=== PATIENT | male | born 1980 | race Caucasian/White ===

== ENCOUNTER 2016-12-12 16:07 | Emergency (ER) | payer OTHER ==
[2016-12-12] MEDS ORDERED: MOTRIN PO ONE (20:59)
[2016-12-12] MEDS ORDERED: BOOSTRIX IM ONE (20:59)
--- NOTE | 2016-12-12 21:03 | Emergency Department Report ---
- General Chief complaint: Skin/Abscess/Foreign Body Stated complaint: CYST LEFT ARMPIT Time Seen by Provider: 12/12/16 19:53 Source: patient Mode of arrival: Ambulatory Limitations: No Limitations - History of Present Illness Initial comments: This is a 36-year-old well-nourished with nontoxic or ill in appearance that presents to the ED with a complaint of left axilla boil that is getting bigger 1 month. Patient denies any pus, drainage, fever, chills, headache, chest pain , short of breath. Patient denies any trauma to area. Denies numbness or tingling. Patient states her last tetanus shot is unknown. He denies any fever or past medical history. MD complaint: abscess/boil -: Gradual, month(s) (1) Tetanus Up to Date: no Severity: mild Severity scale (0 -10): 5 Quality: dull Consistency: constant Improves with: none Worsens with: none Associated symptoms: denies other symptoms Treatments Prior to Arrival: none - Related Data Previous Rx's Medication Instructions Recorded Last Taken Type Cephalexin [Keflex] 500 mg PO Q8HR 7 Days 12/12/16 Unknown Rx Ibuprofen [Motrin 600 MG tab] 600 mg PO Q8H PRN #20 tablet 12/12/16 Unknown Rx Allergies Allergy/AdvReac Type Severity Reaction Status Date / Time No Known Allergies Allergy Verified 12/12/16 21:05 Abscess Boil HPI - HPI Chief Complaint: Skin/Abscess/Foreign Body Stated Complaint: CYST LEFT ARMPIT Time Seen by Provider: 12/12/16 19:53 Home Medications: Previous Rx's Medication Instructions Recorded Last Taken Type Cephalexin [Keflex] 500 mg PO Q8HR 7 Days 12/12/16 Unknown Rx Ibuprofen [Motrin 600 MG tab] 600 mg PO Q8H PRN #20 tablet 12/12/16 Unknown Rx Allergies/Adverse Reactions: Allergies Allergy/AdvReac Type Severity Reaction Status Date / Time No Known Allergies Allergy Verified 12/12/16 21:05 ED Review of Systems ROS: Stated complaint: CYST LEFT ARMPIT Other details as noted in HPI Constitutional: denies: chills, fever Eyes: denies: eye pain, eye discharge, vision change ENT: denies: ear pain, throat pain Respiratory: denies: cough, shortness of breath, wheezing Cardiovascular: denies: chest pain, palpitations Endocrine: no symptoms reported Gastrointestinal: denies: abdominal pain, nausea, diarrhea Genitourinary: denies: urgency, dysuria Musculoskeletal: denies: back pain, joint swelling, arthralgia Skin: denies: rash, lesions Neurological: denies: headache, weakness, paresthesias Psychiatric: denies: anxiety, depression Hematological/Lymphatic: denies: easy bleeding, easy bruising ED Past Medical Hx - Past Medical History Previous Medical History?: No - Surgical History Past Surgical History?: No - Social History Smoking Status: Current Every Day Smoker Substance Use Type: Alcohol - Medications Home Medications: Home Medications Medication Instructions Recorded Confirmed Last Taken Type Cephalexin [Keflex] 500 mg PO Q8HR 7 Days 12/12/16 Unknown Rx Ibuprofen [Motrin 600 MG tab] 600 mg PO Q8H PRN #20 tablet 12/12/16 Unknown Rx ED Physical Exam - General Limitations: No Limitations General appearance: alert, in no apparent distress - Head Head exam: Present: atraumatic, normocephalic, normal inspection - Eye Eye exam: Present: normal appearance, PERRL, EOMI. Absent: scleral icterus, conjunctival injection, nystagmus, periorbital swelling, periorbital tenderness Pupils: Present: normal accommodation - ENT ENT exam: Present: normal exam, normal orophraynx, mucous membranes moist, TM's normal bilaterally, normal external ear exam - Neck Neck exam: Present: normal inspection, full ROM. Absent: tenderness, meningismus, lymphadenopathy, thyromegaly - Respiratory Respiratory exam: Present: normal lung sounds bilaterally. Absent: respiratory distress, wheezes, rales, rhonchi, stridor, chest wall tenderness, accessory muscle use, decreased breath sounds, prolonged expiratory - Cardiovascular Cardiovascular Exam: Present: regular rate, normal rhythm, normal heart sounds. Absent: bradycardia, tachycardia, irregular rhythm, systolic murmur, diastolic murmur, rubs, gallop - GI/Abdominal GI/Abdominal exam: Present: soft, normal bowel sounds. Absent: distended, tenderness, guarding, rebound, rigid, diminished bowel sounds - Rectal Rectal exam: Present: deferred - Extremities Exam Extremities exam: Present: normal inspection, full ROM, normal capillary refill. Absent: tenderness, pedal edema, joint swelling, calf tenderness - Back Exam Back exam: Present: normal inspection, full ROM. Absent: tenderness, CVA tenderness (R), CVA tenderness (L), muscle spasm, paraspinal tenderness, vertebral tenderness, rash noted - Neurological Exam Neurological exam: Present: alert, oriented X3, CN II-XII intact, normal gait, reflexes normal - Psychiatric Psychiatric exam: Present: normal affect, normal mood - Skin Skin exam: Present: warm, dry, intact, normal color. Absent: rash - Other Other exam information: 2 cm abscess noted to the left axilla region. Positive fluctuance. No pus. No drainage. No surrounding cellulitis noted. Tender to touch. ED Course Vital Signs 12/12/16 12/12/16 18:52 19:37 Temperature 98.6 F Pulse Rate 76 115 H Respiratory 16 18 Rate Blood Pressure 148/105 Blood Pressure 115/70 [Left] O2 Sat by Pulse 98 99 Oximetry - Reevaluation(s) Reevaluation #1: 12/12/16 21:02 Patient is talking full sentences with no signs of distress noted. - I & D Left Chest Type of Procedure: Complex Site: Axilla Blade Size: 11 I & D Procedure: betadine prep, sterile drapes applied, sterile dressing applied Progress: Under sterile procedure, I used Betadine to cleanse the area. I then used 4 x 4 to try and clean the area. I used 25-gauge 5/8 hypo-to inject 0.5% Marcaine with epi 1-200,000 with total volume of 6 mL. I then used Betadine again cleansed area. I then used an 11 blade to make a decision of 1 cm to the site. About 1 mL of purulent drainage noted. I then used a hemostat to break down the abscess. I used 0.9% saline to flush the area with a total cc of 20. I then used one fourth iodoform packing. A sterile 4 x 4 with tape has in place as dressing. Patient's are well with no acute signs of distress or complications noted. ED Medical Decision Making - Medical Decision Making Ed course: This is a 36-year-old male that presents with abscess to left axilla 1- patient was examined by myself. This is an NG has been performed. Patient tolerated well with no signs of distress noted. Patient was instructed to return in 2 days for packing removal. Keflex has been prescribed to the patient is discharged and patient was instructed to finish full course of antibiotics that was prescribed. Patient is also instructed to follow-up with a primary care doctor in 3-5 days or if symptoms of numbness, tingling, increased swelling, fever, chills, chest pain or shortness of breath return to emergency room as soon as possible. Patient received tetanus booster in ED. At time time of discharge, the patient does not seem toxic or ill in appearance. No acute signs of distress noted. Patient agrees to discharge treatment plan of care. No further questions noted by the patient. Critical care attestation.: If time is entered above; I have spent that time in minutes in the direct care of this critically ill patient, excluding procedure time. ED Disposition Clinical Impression: Abscess Disposition: - TO HOME OR SELFCARE Is pt being admited?: No Does the pt Need Aspirin: No Condition: Stable Instructions: Cephalexin (By mouth), Ibuprofen (By mouth), Abscess Incision and Drainage (ED), Acute Wound Care (ED), Abscess (ED) Additional Instructions: follow-up with a primary care doctor in 3-5 days or if symptoms of numbness, tingling, increased swelling, fever, chills, chest pain or shortness of breath return to emergency room as soon as possible. Take full course of antibiotics as prescribed. Return to emergency room in 2 days for packing removal and reassessment of the wound. Prescriptions: Cephalexin [Keflex] 500 mg PO Q8HR 7 Days Ibuprofen [Motrin 600 MG tab] 600 mg PO Q8H PRN #20 tablet PRN Reason: Pain Referrals: PRIMARY MD RONNIE [Primary Care Provider] - 3-5 Days LINA MCGUIRE JR, MD [Staff Physician] - 3-5 Days [facility] [Outside] - 3-5 Days [facility] [Outside] - 3-5 Days Forms: Work/School Release Form(ED)
[2016-12-12] MEDS ORDERED: MARCAINE-EPI/PF 0.5%-1:200,000 INFILTRATI ONE (21:11)
[2016-12-12 21:59] VITALS: BP 152/99
== END 2016-12-12 21:59 | disposition home or self-care (01) ==
LOC: ED 16:07
DX: L02.412 Cutaneous abscess of left axilla (principal); F17.200 Nicotine dependence, unspecified, uncomplicated
CPT/HCPCS: 90471; 90715

== ENCOUNTER 2016-12-16 12:06 | Emergency (ER) | payer OTHER ==
[2016-12-16 12:38] VITALS: BP 131/84
--- NOTE | 2016-12-17 00:09 | Emergency Department Report ---
Entered by BETH GARDNER, acting as scribe for ELADIA LAND PA. ED Recheck HPI - General Chief Complaint: Skin/Abscess/Foreign Body Stated Complaint: PACKING REMOVAL Time Seen by Provider: 12/16/16 12:57 Source: patient Mode of arrival: Ambulatory Limitations: No Limitations - History of Present Illness Initial Comments: 36 y/o male with no significant PMHx presents to the ED c/o recheck for left axilla abscess that was drained 4 days ago. Patient states he was seen in this ED on 12/12/2016 to have left axilla incised and drained. Patient states that he feels significantly better. Denies fever, chills, and significant purulent drainage. Notes having mild drainage from site. Reports compliancy to prescribed antibiotics. NKDA. CRANE Complaint: other (abscess packing removal) Onset/Timin -: days(s) Initial Visit For: abscess (left axilla) Returns Today for: other (packing removal from abscess on left axilla) Symptoms Since Prior Visit: no new symptoms (patient states he feel significantly better) Context: planned re-check Associated Symptoms: none. denies: fever, chills, chest pain, shortness of breath, rash, nasuea, abdominal pain Treatments Prior to Arrival: dressings, Given Antibiotics on - Related Data Previous Rx's Medication Instructions Recorded Last Taken Type Cephalexin [Keflex] 500 mg PO Q8HR 7 Days 12/12/16 Unknown Rx Ibuprofen [Motrin 600 MG tab] 600 mg PO Q8H PRN #20 tablet 12/12/16 Unknown Rx Allergies Allergy/AdvReac Type Severity Reaction Status Date / Time No Known Allergies Allergy Verified 12/12/16 21:05 ED Review of Systems Comment: All other systems reviewed and negative Constitutional: denies: chills, fever Eyes: denies: eye pain, eye discharge, vision change ENT: denies: ear pain, throat pain Respiratory: denies: cough, shortness of breath, wheezing Cardiovascular: denies: chest pain, palpitations Endocrine: no symptoms reported Gastrointestinal: denies: abdominal pain, nausea, vomiting, diarrhea Musculoskeletal: denies: back pain, joint swelling, arthralgia Skin: other (well healing abscess on left axilla). denies: rash, lesions Neurological: denies: headache, weakness, paresthesias Hematological/Lymphatic: denies: easy bleeding, easy bruising ED Past Medical Hx - Past Medical History Previous Medical History?: No - Surgical History Past Surgical History?: No - Social History Smoking Status: Current Every Day Smoker Substance Use Type: Alcohol - Medications Home Medications: Home Medications Medication Instructions Recorded Confirmed Last Taken Type Cephalexin [Keflex] 500 mg PO Q8HR 7 Days 12/12/16 Unknown Rx Ibuprofen [Motrin 600 MG tab] 600 mg PO Q8H PRN #20 tablet 12/12/16 Unknown Rx ED Physical Exam - General Limitations: No Limitations General appearance: alert, in no apparent distress - Head Head exam: Present: atraumatic, normocephalic - Eye Eye exam: Present: normal appearance, PERRL, EOMI Pupils: Present: normal accommodation - ENT ENT exam: Present: normal exam, mucous membranes moist, normal external ear exam - Neck Neck exam: Present: normal inspection, full ROM. Absent: tenderness, meningismus, lymphadenopathy - Respiratory Respiratory exam: Present: normal lung sounds bilaterally. Absent: respiratory distress, wheezes, rales, rhonchi, stridor, accessory muscle use, decreased breath sounds - Cardiovascular Cardiovascular Exam: Present: regular rate, normal rhythm, normal heart sounds. Absent: systolic murmur, diastolic murmur, rubs, gallop - GI/Abdominal GI/Abdominal exam: Present: soft, normal bowel sounds. Absent: distended - Extremities Exam Extremities exam: Present: normal inspection, full ROM - Back Exam Back exam: Present: normal inspection, full ROM - Neurological Exam Neurological exam: Present: alert, oriented X3, normal gait - Psychiatric Psychiatric exam: Present: normal affect, normal mood - Skin Skin exam: Present: warm, dry, intact, other (flat well-healing abscess present to left axilla with no purulent drainage noted or sign of infection). Absent: rash ED Course Vital Signs 12/16/16 12:37 Temperature 98.3 F Pulse Rate 81 Respiratory 16 Rate Blood Pressure 131/84 O2 Sat by Pulse 98 Oximetry ED Recheck MDM - Medical Decision Making A/P: Packing removal 1-iodoform packing fluid removed patient states he feels considerably better and has not experienced reaccumulation of abscess, no fever or chills reported 2-sterile gauze placed over the wound site, I advised patient on local wound care and advised him to return if he experiences fever chills bleeding increased pus drainage or reaccumulation of abscess 3-patient stated he felt much better there are no signs of cellulitis or severe infection, stable for discharge. No need to repack the wound ED Disposition Clinical Impression: Abscess packing removal, Visit for wound check Disposition: TO HOME OR SELFCARE Is pt being admited?: No Does the pt Need Aspirin: No Condition: Stable Instructions: Acute Wound Care (ED) Additional Instructions: Return to the ED for any reaccumulation of abscess, significant pus draining or bleeding from area, fevers or chills. Referrals: [facility] [Provider Group] - 3-5 Days Forms: Work/School Release Form(ED) This documentation as recorded by the KENDRA salamanca JASMINE,accurately reflects the service I personally performed and the decisions made by ,ELADIA LAND PA.
== END 2016-12-16 14:02 | disposition home or self-care (01) ==
LOC: ED 12:06
DX: Z48.817 Encounter for surgical aftercare following surgery on the skin and subcutaneous tissue (principal); L02.412 Cutaneous abscess of left axilla